=== PATIENT | male | born 1995 | race Caucasian/White ===

== ENCOUNTER 2017-02-07 10:01 | Emergency (ER) | payer BC ==
[2017-02-07 10:28] VITALS: TEMP 36.8; Ht 170.2 cm
--- NOTE | 2017-02-07 11:04 | DIAGNOSTIC IMAGING REPORT ---
RIGHT FOOT MIN 3 VIEWS ROUTINE CLINICAL HISTORY: Right foot pain. COMPARISON: None FINDINGS: The tarsometatarsal joints are intact. There is no acute fracture. 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 A surgical object is noted along the lateral aspect of the talus. IMPRESSION: 1. No acute fracture or dislocation of the right foot. 2. Surgical object noted along the lateral aspect of the talus. This could be correlated with surgical history. 3. Mild osteophytosis of the talonavicular articulation. Electronically signed by: Nael Paredes M.D. 02/07/2017 11:02 AM Dictated Date/Time: 02/07/2017 11:00 AM
[2017-02-07 12:07] VITALS: BP 155/88; PULSE 74; O2SAT 97
--- NOTE | 2017-02-07 16:13 | EMERGENCY ROOM VISIT NOTE ---
History First contact with patient: 10:32 Chief Complaint: FOOT PAIN Stated Complaint: HURT FOOT, IN A LITTLE PAIN, HAD PREVIOUS SURGERY History of Present Illness The patient is a 21 year old male who presents to the Emergency Room with complaints of increasing right foot pain with ambulation. The patient reports undergoing foot surgery prostate 10 years ago. This surgery was performed because of a flat foot. The patient reports that over the past several days, his pain has been increasing. It now hurts a lot with any weightbearing. He also noticed some mild bruising over the right lateral ankle and foot region, and presents to the emergency department for further evaluation. He rates his pain a 6 out of 10 with weightbearing. He denies any known trauma to the foot. Review of Systems 10 system review was performed and was negative except for pertinent positives and negatives as indicated in history of present illness Past Medical/Surgical History Medical Problems: (1) No pertinent past medical history Surgical Problems: (1) History of foot surgery Family History Unremarkable Social History Smoking Status: Never Smoker Alcohol Use: occasionally Marital Status: single Occupation Status: [employer] student Current/Historical Medications No Active Prescriptions or Reported Meds Allergies Coded Allergies: No Known Allergies (Unverified , 02/07/17) Physical Exam Vital Signs Date Time Temp Pulse Resp B/P Pulse Ox O2 Delivery O2 Flow Rate FiO2 02/07/17 12:07 74 18 155/88 97 Room Air 02/07/17 10:28 36.8 84 20 138/71 99 Room Air Physical Exam CONSTITUTIONAL: Healthy and well nourished. Alert and oriented X 3 with positive affect. HEENT: Normocephalic, atraumatic. Pupils equal, round and reactive. NECK: Full active range of motion without discomfort. MUSCULOSKELETAL: Examination of the right foot does show well-healed surgical incisions. The patient has generalized tenderness to palpation over the end foot and lateral foot region. He has no focal tenderness over the ankle, calcaneus or Achilles tendon. No significant worsening pain with subtalar motion. Pedal pulses are intact. INTEGUMENTARY: No rash or other significant dermatologic conditions noted. NEUROLOGIC: Right foot and toes are sensory intact. Medical Decision & Procedures ER Provider Diagnostic Interpretation: My interpretation of right foot x-rays does not show any acute fractures or dislocation. Radiologist report is as follows: RIGHT FOOT MIN 3 VIEWS ROUTINE CLINICAL HISTORY: Right foot pain. COMPARISON: None FINDINGS: The tarsometatarsal joints are intact. There is no acute fracture. 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 A surgical object is noted along the lateral aspect of the talus. IMPRESSION: 1. No acute fracture or dislocation of the right foot. 2. Surgical object noted along the lateral aspect of the talus. This could be correlated with surgical history. 3. Mild osteophytosis of the talonavicular articulation. ED Course Patient history and physical exam were performed. Nurse's notes were reviewed. The patient refused any analgesics while in the emergency department. X-rays of the right foot are unremarkable. Copies of the patient's x-rays were burned to a disc. The patient was instructed to take his x-rays to his foot surgeon. The patient reports that his doctor told him that by the time he completed his 4 years at [facility], he would likely require additional surgery. The patient was fitted with crutches. He was instructed to intermittently apply ice and remain limited weightbearing until symptoms improve. The patient was happy with plan of care, voiced understanding of all discharge instructions, and denied any significant pain at the time of discharge. Medical Decision Impression Primary Impression: Right foot pain Additional Impression: Status post right foot surgery Departure Information Prescriptions No Active Prescriptions or Reported Meds Referrals [facility] (PCP) Patient Instructions [facility] Problem Qualifiers
== END 2017-02-07 12:40 | disposition home or self-care (01) ==
LOC: C.EDB 10:04 → C.EDD 12:40
DX: M79.671 Pain in right foot (principal); Z98.890 Other specified postprocedural states